=== PATIENT | female | born 1965 | race Hispanic/Latino ===

== ENCOUNTER 2016-08-10 22:11 | Inpatient (IN) | payer MEDICARE, OTHER ==
[~2016-08-10] VITALS: Ht 157.5 cm; Wt 98.0 kg
[~2016-08-10 22:11] MED LIST: ALENDRONATE70 MG PO; AMLODIPINE BESYL5 MG PO; AMLODIPINE5 MG PO; AMOXICILLIN500 MG PO; ARAVA20 MG PO; AUGMENTIN875TAB PO; BACTRIM DS1 TAB PO; BUMETANIDE1 MG PO; CALCIUM600 M1 PO; CEFEPIME1 GM IM; CELEBREX100 M1 PO; COMPAZINE10 MG OR; DULCOLAX10 MG; DULCOLAX5 MG PO; DURAGESIC50 MCG/H1 TD; DYNACIN100 MG PO; EFFEXOR XR150 MG PO; EFFEXOR XR75 MG PO; EFFEXOR75 MG PO; ENBREL25 MG/0.5 SC; FIORINA1 PO; FLEXERIL PO; FOSAMAX70 MG PO; FUROSEMIDE20 MG PO; GABAPENTIN300 M2; GABAPENTIN300 M2 PO; HEPARIN LOC IV; HYDROCO/APAP1 TA9 PO; HYDROXYZ HCL25 MG PO; IPRATROPIU0.5 MG/3 M IN; K-DUR/KLOR-CON20 MEQ PO; LASIX 20 MG TAB20 MG PO; LASIX 40 MG40 MG/TAB PO; LISINOPRIL10 MG PO; LISINOPRIL20 MG PO; LOPRESSOR 550 MG/TAB PO; LOPRESSOR25 MG PO; LORTAB 10-325 M1 TAB PO; LORTAB 1010 MG PO; LORTAB 5/3255 MG PO; MAGNESIUM-OX400 MG PO; METOPROL TAR100 MG PO; METOPROL TAR25 MG PO; METOPROL TAR50 MG PO; MORPHINE SUL30 M3 PO; MORPHINE SUL30 M5 PO; MUCINEX600 MG PO; MULTIVITAMI9 PO; NAPROSYN500 MG PO; NEURONTIN300 MG PO; NEURONTIN600 MG PO; NORCO1 TAB PO; NORVASC10 MG PO; NYSTATIN TOP; NYSTATIN100000 M1 PO; ONDANSETRON4 MG PO; PERCOCET 10/31 COMBO PO; PREDNISODT10 PO; PREDNISONE10 MG PO; PREDNISONE20 MG PO; PREDNISONE5 MG PO; RESTORIL15 M1 PO; RESTORIL15 MG PO; STOOL SOFTENER1 TAB PO; TOPROL XL100 MG PO; ULTRAM50 M1 PO; VANCOMYCIN HCL1 GM IV; VANCOMYCIN HCL1.5GM IV; VITAMIN D PO; VITAMIN D50000 UN1 PO; WELLBUTRIN150 M2 PO; XANAX0.25 MG PO; XANAX1 MG PO; ZOFRAN ODT4 MG PO; ZYRTEC-D ALG PO
[2016-08-10 23:40] LABS: HEMATOCRIT 40.2 % (37.0-47.0); HEMOGLOBIN 12.5 g/dl (12.0-16.0); IMMATURE GRANULOCYTES 1.8 % (0.0-1.0); MEAN CELL VOLUME 98.5 fL CALC (80.0-100.0); MEAN CORPUSCULAR HGB 30.6 pG CALC (26.0-32.0); MEAN CORPUSCULAR HGB CONC 31.1 g/L CALC (32.0-36.0); NEUT# 17.17 thou/uL (2.00-7.15); RED BLOOD COUNT 4.08 mill/uL (4.20-5.60); RED CELL DISTRI WIDTH 16.6 % (11.5-15.5)
[2016-08-10 23:54] LABS: ALBUMIN 3.5 g/dL (3.2-5.0); CALCIUM 7.7 mg/dL (8.4-10.2); CREATININE 2.4 mg/dL (0.5-1.0); POTASSIUM 4.2 mmol/l (3.5-5.1); TOTAL PROTEIN 7.2 g/dL (6.3-8.2)
[2016-08-11] VITALS (17 sets, daily range): BP systolic 86–171; BP diastolic 48–85
[2016-08-11 02:30] LABS: ACT PARTIAL THROMBO TIME 31.6 SECONDS (20.0-32.5); INTERNATIONAL NORMALIZED RATIO 1.1 RATIO (0.7-1.3); PROTHROMBIN TIME 11.5 SECONDS (9.0-12.5)
[2016-08-11 04:44] LABS: URINE BILIRUBIN - DIPSTICK NEGATIVE (NEGATIVE); URINE BLOOD DIPSTICK LARGE (NEGATIVE); URINE COLOR YELLOW; URINE GLUCOSE - DIPSTICK NEGATIVE (NEGATIVE); URINE KETONE TRACE mg/dL (NEGATIVE); URINE PROTEIN - DIPSTICK 100 mg/dL (NEG-TRACE); URINE UROBILINOGEN - DIPSTICK 0.2 E.U./dL (0.2)
[2016-08-11 04:52] LABS: URINE CLARITY CLOUDY; URINE LEUK ESTERASE SMALL (NEGATIVE); URINE NITRITE - DIPSTICK POSITIVE (Negative)
[2016-08-11 04:59] LABS: URINE BACTERIA FEW hpf; URINE WBC 50-100 WBC/hpf (0-5)
[2016-08-11 09:41] LABS: HEMATOCRIT 34.6 % (37.0-47.0); HEMOGLOBIN 10.1 g/dl (12.0-16.0); IMMATURE GRANULOCYTES 1.1 % (0.0-1.0); MEAN CELL VOLUME 104.5 fL CALC (80.0-100.0); MEAN CORPUSCULAR HGB 30.5 pG CALC (26.0-32.0); MEAN CORPUSCULAR HGB CONC 29.2 g/L CALC (32.0-36.0); NEUT# 10.02 thou/uL (2.00-7.15); RED BLOOD COUNT 3.31 mill/uL (4.20-5.60); RED CELL DISTRI WIDTH 16.9 % (11.5-15.5)
[2016-08-11 09:55] LABS: CALCIUM 6.2 mg/dL (8.4-10.2); CREATININE 2.1 mg/dL (0.5-1.0); POTASSIUM 4.8 mmol/l (3.5-5.1)
[2016-08-11] MEDS ORDERED: AMOXICILLIN500 M2 PO (11:47)
[2016-08-11] MEDS ORDERED: OXYCODONE HCL10 MG PO (11:49)
[2016-08-11] MEDS ORDERED: DULOXETINE HCL30 MG PO (15:17)
[2016-08-12] VITALS (12 sets, daily range): BP systolic 130–176; BP diastolic 77–118
[2016-08-12 06:20] LABS: HEMATOCRIT 32.3 % (37.0-47.0); HEMOGLOBIN 9.7 g/dl (12.0-16.0); IMMATURE GRANULOCYTES 1.4 % (0.0-1.0); MEAN CELL VOLUME 100.6 fL CALC (80.0-100.0); MEAN CORPUSCULAR HGB 30.2 pG CALC (26.0-32.0); NEUT# 10.79 thou/uL (2.00-7.15); RED BLOOD COUNT 3.21 mill/uL (4.20-5.60); RED CELL DISTRI WIDTH 16.7 % (11.5-15.5)
[2016-08-12 06:31] LABS: CALCIUM 6.1 mg/dL (8.4-10.2); CREATININE 1.8 mg/dL (0.5-1.0); POTASSIUM 4.9 mmol/l (3.5-5.1)
[2016-08-13] VITALS (7 sets, daily range): BP systolic 142–160; BP diastolic 68–102
[2016-08-13 06:28] LABS: HEMATOCRIT 34.4 % (37.0-47.0); HEMOGLOBIN 10.6 g/dl (12.0-16.0); IMMATURE GRANULOCYTES 1.3 % (0.0-1.0); MEAN CELL VOLUME 98.6 fL CALC (80.0-100.0); MEAN CORPUSCULAR HGB 30.4 pG CALC (26.0-32.0); MEAN CORPUSCULAR HGB CONC 30.8 g/L CALC (32.0-36.0); NEUT# 7.96 thou/uL (2.00-7.15); RED BLOOD COUNT 3.49 mill/uL (4.20-5.60); RED CELL DISTRI WIDTH 16.8 % (11.5-15.5)
[2016-08-13 06:41] LABS: CALCIUM 6.4 mg/dL (8.4-10.2); CREATININE 1.8 mg/dL (0.5-1.0); POTASSIUM 4.6 mmol/l (3.5-5.1)
[2016-08-14 03:35] VITALS: BP 140/90
[2016-08-14 08:48] VITALS: BP 130/70
[2016-08-14] MEDS ORDERED: TOPROL XL100 MG PO (12:18)
[2016-08-14] MEDS ORDERED: GABAPENTIN300 M2 PO (12:19)
[2016-08-14] MEDS ORDERED: BUSPAR5 M1 PO (12:19)
[2016-08-14] MEDS ORDERED: DULOXETINE HCL30 MG PO (12:19)
[2016-08-14] MEDS ORDERED: CIPROFLOXACN500 MG PO (12:22)
[2016-08-14] MEDS ORDERED: PREDNISONE10 MG PO (12:23)
[2016-08-14] MEDS ORDERED: IPRATROPIU0.5 MG/3 M IN (12:24)
[2016-08-14] MEDS ORDERED: VITAMIN D50000 UNIT PO (12:25)
== END 2016-08-14 14:06 | disposition home health service (06) | DRG 871 ==
LOC: ENPENDDIS → ED 22:11 → ED-I 08-11 04:00 → ED 08-11 05:57 → MS2 08-11 05:58 → ICU 08-11 05:58 → MS2 08-12 20:35
PROVIDERS: Emergency Medicine; Internal Medicine; ADMIT Internal Medicine; ATTEND Internal Medicine
PROC: 0T9B70Z Drainage of Bladder with Drainage Device, Via Natural or Artificial Opening (ICD-10-PCS; principal; 2016-08-11)
DX: A41.51 Sepsis due to Escherichia coli [E. coli] (principal); R65.21 Severe sepsis with septic shock; G93.41 Metabolic encephalopathy; E87.2 Acidosis; N30.01 Acute cystitis with hematuria; N17.9 Acute kidney failure, unspecified; M06.9 Rheumatoid arthritis, unspecified; F32.9 Major depressive disorder, single episode, unspecified; M19.90 Unspecified osteoarthritis, unspecified site; F17.210 Nicotine dependence, cigarettes, uncomplicated; M79.7 Fibromyalgia; G62.9 Polyneuropathy, unspecified; I12.9 Hypertensive chronic kidney disease with stage 1 through stage 4 chronic kidney disease, or unspecified chronic kidney disease; N18.9 Chronic kidney disease, unspecified; F41.1 Generalized anxiety disorder; E55.9 Vitamin D deficiency, unspecified; Z87.440 Personal history of urinary (tract) infections; Z86.14 Personal history of Methicillin resistant Staphylococcus aureus infection; Z79.52 Long term (current) use of systemic steroids
CPT/HCPCS: J3370

== ENCOUNTER 2016-10-09 03:37 | Emergency (ER) | payer MEDICARE, OTHER ==
[~2016-10-09] VITALS: Ht 157.5 cm; Wt 96.0 kg
[~2016-10-09 03:37] MED LIST changes: +AMOXICILLIN500 M2 PO; +BUSPAR5 M1 PO; +CIPROFLOXACN500 MG PO; +DULOXETINE HCL30 MG PO; +OXYCODONE HCL10 MG PO; +VITAMIN D50000 UNIT PO
[2016-10-09] MEDS ORDERED: GABAPENTIN600 MG PO (03:51)
[2016-10-09] MEDS ORDERED: PAXIL40 MG PO (03:56)
[2016-10-09] MEDS ORDERED: DILAUDID4 MG PO (03:56)
[2016-10-09] MEDS ORDERED: FUROSEMIDE40 MG PO (03:57)
[2016-10-09 05:01] LABS: ALBUMIN 3.8 g/dL (3.2-5.0); BILIRUBIN, TOTAL 0.6 mg/dL (0.0-1.4); CALCIUM 8.3 mg/dL (8.4-10.2); CREATININE 1.6 mg/dL (0.5-1.0); POTASSIUM 3.6 mmol/l (3.5-5.1); TOTAL PROTEIN 6.7 g/dL (6.3-8.2)
[2016-10-09 05:09] LABS: HEMATOCRIT 40.1 % (37.0-47.0); HEMOGLOBIN 12.7 g/dl (12.0-16.0); IMMATURE GRANULOCYTES 4.5 % (0.0-1.0); MEAN CORPUSCULAR HGB 31.1 pG CALC (26.0-32.0); MEAN CORPUSCULAR HGB CONC 31.7 g/L CALC (32.0-36.0); NEUT# 7.73 thou/uL (2.00-7.15); RED BLOOD COUNT 4.09 mill/uL (4.20-5.60); RED CELL DISTRI WIDTH 16.7 % (11.5-15.5)
[2016-10-09] MEDS ORDERED: CEPHALEXIN500 MG PO (05:34)
[2016-10-09] MEDS ORDERED: BACTRIM DS1 TAB PO (05:34)
[2016-10-09 06:29] VITALS: BP 160/75
== END 2016-10-09 06:29 | disposition home or self-care (01) ==
LOC: ED 03:37
PROVIDERS: Emergency Medicine
DX: L03.116 Cellulitis of left lower limb (principal); G62.9 Polyneuropathy, unspecified; I10 Essential (primary) hypertension; M06.9 Rheumatoid arthritis, unspecified; M19.90 Unspecified osteoarthritis, unspecified site; F41.9 Anxiety disorder, unspecified; F32.9 Major depressive disorder, single episode, unspecified; M81.0 Age-related osteoporosis without current pathological fracture

== ENCOUNTER 2017-03-17 06:21 | Emergency (ER) | payer MEDICARE, OTHER ==
[~2017-03-17] VITALS: Ht 157.5 cm; Wt 109.0 kg
[~2017-03-17 06:21] MED LIST changes: +CEPHALEXIN500 MG PO; +DILAUDID4 MG PO; +FUROSEMIDE40 MG PO; +GABAPENTIN600 MG PO; +PAXIL40 MG PO
[2017-03-17 08:10] VITALS: BP 129/80
== END 2017-03-17 08:52 | disposition home or self-care (01) ==
LOC: ED 06:21
DX: G89.29 Other chronic pain (principal); M54.5 Low back pain; M06.9 Rheumatoid arthritis, unspecified; M79.7 Fibromyalgia

== ENCOUNTER 2017-03-20 19:57 | Emergency (ER) | payer MEDICARE, OTHER ==
[~2017-03-20] VITALS: Ht 157.5 cm; Wt 100.0 kg
[2017-03-21 00:40] VITALS: BP 161/73
[2017-03-21] MEDS ORDERED: ESCITALOPRAM OX10 MG PO (15:39)
[2017-03-21] MEDS ORDERED: PEPCID20 MG PO (15:41)
[2017-03-21] MEDS ORDERED: NYSTAT-RX500 MU XX (15:42)
[2017-03-21] MEDS ORDERED: TYLENOL325 MG PO (15:43)
[2017-03-21] MEDS ORDERED: STOOL SOFTENER PO (15:43)
== END 2017-03-21 00:40 | disposition home or self-care (01) ==
LOC: ED 19:57
DX: T40.601A Poisoning by unspecified narcotics, accidental (unintentional), initial encounter (principal); I10 Essential (primary) hypertension; M06.9 Rheumatoid arthritis, unspecified; M19.90 Unspecified osteoarthritis, unspecified site; M79.7 Fibromyalgia; F32.9 Major depressive disorder, single episode, unspecified; M81.0 Age-related osteoporosis without current pathological fracture; G62.9 Polyneuropathy, unspecified; Y92.009 Unspecified place in unspecified non-institutional (private) residence as the place of occurrence of the external cause

== ENCOUNTER 2017-03-21 01:39 | Inpatient (IN) | payer MEDICARE, OTHER ==
[~2017-03-21] VITALS: Ht 274.3 cm; Wt 106.2 kg
[2017-03-21 04:05] LABS: ALBUMIN 3.6 g/dL (3.2-5.0); BILIRUBIN, TOTAL 0.4 mg/dL (0.0-1.4); TOTAL PROTEIN 6.4 g/dL (6.3-8.2)
[2017-03-21 04:07] LABS: HEMATOCRIT 42.9 % (37.0-47.0); IMMATURE GRANULOCYTES 3.4 % (0.0-1.0); MEAN CELL VOLUME 96.8 fL CALC (80.0-100.0); MEAN CORPUSCULAR HGB 29.3 pG CALC (26.0-32.0); MEAN CORPUSCULAR HGB CONC 30.3 g/L CALC (32.0-36.0); NEUT# 13.87 thou/uL (2.00-7.15); RED BLOOD COUNT 4.43 mill/uL (4.20-5.60); RED CELL DISTRI WIDTH 15.4 % (11.5-15.5)
[2017-03-21 04:15] LABS: CREATININE 4.8 mg/dL (0.5-1.0); POTASSIUM 5.7 mmol/l (3.5-5.1)
[2017-03-21 04:30] LABS: ACT PARTIAL THROMBO TIME 23.6 SECONDS (20.0-32.5); INTERNATIONAL NORMALIZED RATIO 0.9 RATIO (0.7-1.3); PROTHROMBIN TIME 10.4 SECONDS (9.0-12.5)
[2017-03-21 06:02] LABS: URINE BILIRUBIN - DIPSTICK NEGATIVE (NEGATIVE); URINE BLOOD DIPSTICK MODERATE (NEGATIVE); URINE COLOR YELLOW; URINE GLUCOSE - DIPSTICK NEGATIVE (NEGATIVE); URINE KETONE 15 mg/dL (NEGATIVE); URINE LEUK ESTERASE NEGATIVE (NEGATIVE); URINE PH 5.5 (4.5-8.0); URINE PROTEIN - DIPSTICK 100 mg/dL (NEG-TRACE); URINE UROBILINOGEN - DIPSTICK 0.2 E.U./dL (0.2)
[2017-03-21 06:11] LABS: URINE CLARITY CLEAR; URINE NITRITE - DIPSTICK POSITIVE (Negative)
[2017-03-21 06:16] LABS: URINE BACTERIA MANY hpf
[2017-03-21 08:20] VITALS: BP 128/81
[2017-03-21 09:30] LABS: HEMATOCRIT 39.5 % (37.0-47.0); HEMOGLOBIN 12.5 g/dl (12.0-16.0); IMMATURE GRANULOCYTES 3.6 % (0.0-1.0); MEAN CELL VOLUME 94.5 fL CALC (80.0-100.0); MEAN CORPUSCULAR HGB 29.9 pG CALC (26.0-32.0); MEAN CORPUSCULAR HGB CONC 31.6 g/L CALC (32.0-36.0); NEUT# 11.54 thou/uL (2.00-7.15); RED BLOOD COUNT 4.18 mill/uL (4.20-5.60); RED CELL DISTRI WIDTH 15.4 % (11.5-15.5)
[2017-03-21 09:59] LABS: POTASSIUM 4.7 mmol/l (3.5-5.1)
[2017-03-21 10:40] LABS: CHOLESTEROL HDL RATIO 3.7 (<4.4 (CALC)); MAGNESIUM 2.4 mg/dL (1.6-2.3)
[2017-03-21 11:01] LABS: CREATININE 5.4 mg/dL (0.5-1.0)
[2017-03-21 11:17] VITALS: BP 163/90
[2017-03-21 15:36] VITALS: BP 137/85
[2017-03-21] MEDS ORDERED: ESCITALOPRAM OX10 MG PO (15:39)
[2017-03-21] MEDS ORDERED: PEPCID20 MG PO (15:41)
[2017-03-21] MEDS ORDERED: NYSTAT-RX500 MU XX (15:42)
[2017-03-21] MEDS ORDERED: STOOL SOFTENER PO (15:43)
[2017-03-21] MEDS ORDERED: TYLENOL325 MG PO (15:43)
[2017-03-21 19:41] VITALS: BP 123/70
[2017-03-22 05:46] LABS: HEMATOCRIT 36.4 % (37.0-47.0); HEMOGLOBIN 11.1 g/dl (12.0-16.0); IMMATURE GRANULOCYTES 3.7 % (0.0-1.0); MEAN CELL VOLUME 98.1 fL CALC (80.0-100.0); MEAN CORPUSCULAR HGB 29.9 pG CALC (26.0-32.0); MEAN CORPUSCULAR HGB CONC 30.5 g/L CALC (32.0-36.0); NEUT# 9.3 thou/uL (2.00-7.15); RED BLOOD COUNT 3.71 mill/uL (4.20-5.60); RED CELL DISTRI WIDTH 15.4 % (11.5-15.5)
[2017-03-22 05:52] VITALS: BP 138/76
[2017-03-22 06:00] LABS: ALBUMIN 2.9 g/dL (3.2-5.0); CREATININE 4.8 mg/dL (0.5-1.0); POTASSIUM 4.6 mmol/l (3.5-5.1)
[2017-03-22 09:20] VITALS: BP 140/50
[2017-03-22 15:23] VITALS: BP 110/77
[2017-03-22 19:20] VITALS: BP 128/81
[2017-03-23 04:13] VITALS: BP 136/87
[2017-03-23 04:52] LABS: HEMATOCRIT 34.1 % (37.0-47.0); HEMOGLOBIN 10.3 g/dl (12.0-16.0); IMMATURE GRANULOCYTES 4.1 % (0.0-1.0); MEAN CELL VOLUME 98.8 fL CALC (80.0-100.0); MEAN CORPUSCULAR HGB 29.9 pG CALC (26.0-32.0); MEAN CORPUSCULAR HGB CONC 30.2 g/L CALC (32.0-36.0); NEUT# 6.33 thou/uL (2.00-7.15); RED BLOOD COUNT 3.45 mill/uL (4.20-5.60); RED CELL DISTRI WIDTH 15.6 % (11.5-15.5)
[2017-03-23 04:56] LABS: ALBUMIN 2.6 g/dL (3.2-5.0); CREATININE 4.4 mg/dL (0.5-1.0); POTASSIUM 3.7 mmol/l (3.5-5.1)
[2017-03-23 07:50] VITALS: BP 132/58
[2017-03-23 15:50] VITALS: BP 147/78
[2017-03-23 19:25] VITALS: BP 136/72
[2017-03-24 04:00] VITALS: BP 107/57
[2017-03-24 06:07] LABS: HEMATOCRIT 34.8 % (37.0-47.0); HEMOGLOBIN 10.5 g/dl (12.0-16.0); IMMATURE GRANULOCYTES 4.4 % (0.0-1.0); MEAN CORPUSCULAR HGB 29.6 pG CALC (26.0-32.0); MEAN CORPUSCULAR HGB CONC 30.2 g/L CALC (32.0-36.0); NEUT# 5.77 thou/uL (2.00-7.15); RED BLOOD COUNT 3.55 mill/uL (4.20-5.60); RED CELL DISTRI WIDTH 15.5 % (11.5-15.5)
[2017-03-24 06:16] LABS: CREATININE 4.1 mg/dL (0.5-1.0); MAGNESIUM 1.6 mg/dL (1.6-2.3); POTASSIUM 3.7 mmol/l (3.5-5.1)
[2017-03-24 09:59] VITALS: BP 121/84
[2017-03-24 15:06] VITALS: BP 90/42
[2017-03-24 19:00] VITALS: BP 95/60
[2017-03-25 08:21] VITALS: BP 104/77
[2017-03-25 14:09] LABS: ALBUMIN 2.6 g/dL (3.2-5.0); POTASSIUM 3.8 mmol/l (3.5-5.1)
[2017-03-25 16:00] VITALS: BP 93/61
[2017-03-25 19:15] VITALS: BP 106/82
[2017-03-26 03:40] VITALS: BP 142/77
[2017-03-26 07:52] VITALS: BP 117/63
[2017-03-26 15:13] VITALS: BP 156/98
[2017-03-26 19:01] VITALS: BP 153/90
[2017-03-26 20:26] LABS: HEMATOCRIT 33.5 % (37.0-47.0); HEMOGLOBIN 10.7 g/dl (12.0-16.0); MEAN CELL VOLUME 92.3 fL CALC (80.0-100.0); MEAN CORPUSCULAR HGB 29.5 pG CALC (26.0-32.0); MEAN CORPUSCULAR HGB CONC 31.9 g/L CALC (32.0-36.0); PLATELET COUNT 221 thou/uL (130-400); RED BLOOD COUNT 3.63 mill/uL (4.20-5.60); RED CELL DISTRI WIDTH 15.1 % (11.5-15.5)
[2017-03-26 20:56] LABS: IMMATURE GRANULOCYTES 8.2 % (0.0-1.0); MANUAL DIFFERENTIAL YES
[2017-03-26 20:58] LABS: BAND 7 % (0-8)
[2017-03-26 21:00] LABS: CREATININE 4.4 mg/dL (0.5-1.0); POTASSIUM 2.7 mmol/l (3.5-5.1)
[2017-03-27 04:26] VITALS: BP 167/85
[2017-03-27 05:59] LABS: HEMATOCRIT 34.1 % (37.0-47.0); MEAN CELL VOLUME 91.9 fL CALC (80.0-100.0); MEAN CORPUSCULAR HGB 29.6 pG CALC (26.0-32.0); MEAN CORPUSCULAR HGB CONC 32.3 g/L CALC (32.0-36.0); RED BLOOD COUNT 3.71 mill/uL (4.20-5.60); RED CELL DISTRI WIDTH 15.1 % (11.5-15.5)
[2017-03-27 06:07] LABS: ALBUMIN 2.8 g/dL (3.2-5.0); CREATININE 4.4 mg/dL (0.5-1.0); POTASSIUM 2.7 mmol/l (3.5-5.1)
[2017-03-27 06:18] LABS: IMMATURE GRANULOCYTES 6.9 % (0.0-1.0); MANUAL DIFFERENTIAL YES
[2017-03-27 06:19] LABS: BAND 4 % (0-8)
[2017-03-27 06:25] LABS: PLATELET COUNT 258 thou/uL (130-400)
[2017-03-27 08:45] VITALS: BP 170/90
[2017-03-27 08:56] LABS: URINE BILIRUBIN - DIPSTICK NEGATIVE (NEGATIVE); URINE BLOOD DIPSTICK MODERATE (NEGATIVE); URINE COLOR YELLOW; URINE GLUCOSE - DIPSTICK 250 mg/dL (NEGATIVE); URINE KETONE NEGATIVE (NEGATIVE); URINE LEUK ESTERASE NEGATIVE (Negative); URINE NITRITE - DIPSTICK NEGATIVE (Negative); URINE PROTEIN - DIPSTICK 30 mg/dL (NEG-TRACE); URINE UROBILINOGEN - DIPSTICK 0.2 E.U./dL (0.2)
[2017-03-27 09:04] LABS: URINE CLARITY CLEAR
[2017-03-27 09:06] LABS: URINE SQUAMOUS EPITHELIAL CELL FEW EPI/hpf (0-FEW)
[2017-03-27 15:05] VITALS: BP 165/99
[2017-03-27 19:00] VITALS: BP 190/113
[2017-03-28] VITALS (7 sets, daily range): BP systolic 150–182; BP diastolic 88–106
[2017-03-28 06:07] LABS: HEMATOCRIT 32.5 % (37.0-47.0); HEMOGLOBIN 10.3 g/dl (12.0-16.0); MEAN CELL VOLUME 92.6 fL CALC (80.0-100.0); MEAN CORPUSCULAR HGB 29.3 pG CALC (26.0-32.0); MEAN CORPUSCULAR HGB CONC 31.7 g/L CALC (32.0-36.0); RED BLOOD COUNT 3.51 mill/uL (4.20-5.60); RED CELL DISTRI WIDTH 15.3 % (11.5-15.5)
[2017-03-28 06:23] LABS: CREATININE 4.4 mg/dL (0.5-1.0); MAGNESIUM 2.3 mg/dL (1.6-2.3); POTASSIUM 3.3 mmol/l (3.5-5.1)
[2017-03-29] VITALS (7 sets, daily range): BP systolic 130–189; BP diastolic 60–111
[2017-03-29 06:26] LABS: HEMATOCRIT 31.3 % (37.0-47.0); HEMOGLOBIN 9.9 g/dl (12.0-16.0); MEAN CELL VOLUME 93.4 fL CALC (80.0-100.0); MEAN CORPUSCULAR HGB 29.6 pG CALC (26.0-32.0); MEAN CORPUSCULAR HGB CONC 31.6 g/L CALC (32.0-36.0); RED BLOOD COUNT 3.35 mill/uL (4.20-5.60); RED CELL DISTRI WIDTH 15.5 % (11.5-15.5)
[2017-03-29 06:41] LABS: ALBUMIN 2.8 g/dL (3.2-5.0); MAGNESIUM 2.2 mg/dL (1.6-2.3); POTASSIUM 3.5 mmol/l (3.5-5.1)
[2017-03-30 05:53] VITALS: BP 136/76
[2017-03-30 08:05] LABS: ALBUMIN 3.1 g/dL (3.2-5.0); CREATININE 3.5 mg/dL (0.5-1.0); POTASSIUM 3.7 mmol/l (3.5-5.1)
[2017-03-30 08:27] VITALS: BP 111/75
[2017-03-30 15:27] VITALS: BP 111/72
[2017-03-30 20:25] VITALS: BP 152/93
[2017-03-31 07:43] LABS: HEMATOCRIT 33.5 % (37.0-47.0); HEMOGLOBIN 10.3 g/dl (12.0-16.0); MEAN CELL VOLUME 96.3 fL CALC (80.0-100.0); MEAN CORPUSCULAR HGB 29.6 pG CALC (26.0-32.0); MEAN CORPUSCULAR HGB CONC 30.7 g/L CALC (32.0-36.0); RED BLOOD COUNT 3.48 mill/uL (4.20-5.60); RED CELL DISTRI WIDTH 15.9 % (11.5-15.5)
[2017-03-31 08:13] LABS: ALBUMIN 2.9 g/dL (3.2-5.0); CREATININE 3.1 mg/dL (0.5-1.0); POTASSIUM 3.6 mmol/l (3.5-5.1)
[2017-03-31 08:15] VITALS: BP 130/50
[2017-03-31 16:41] VITALS: BP 120/76
[2017-03-31 20:10] VITALS: BP 120/63
[2017-04-01 06:43] VITALS: BP 134/96
[2017-04-01 07:55] VITALS: BP 112/78
[2017-04-01] MEDS ORDERED: OMNICEF300 MG PO (13:51)
[2017-04-01] MEDS ORDERED: PREDNISONE10 MG PO (13:51)
[2017-04-01] MEDS ORDERED: VITAMIN D2000 UNI2 PO (13:51)
[2017-04-01] MEDS ORDERED: GABAPENTIN300 M2 PO (13:51)
[2017-04-01 16:01] VITALS: BP 117/75
[2017-04-01 20:20] VITALS: BP 122/84
[2017-04-02 05:30] VITALS: BP 137/84
[2017-04-02 05:41] LABS: ALBUMIN 3.1 g/dL (3.2-5.0); CREATININE 2.4 mg/dL (0.5-1.0); POTASSIUM 4.2 mmol/l (3.5-5.1)
[2017-04-02 05:48] LABS: HEMATOCRIT 35.4 % (37.0-47.0); HEMOGLOBIN 10.8 g/dl (12.0-16.0); MEAN CELL VOLUME 94.9 fL CALC (80.0-100.0); MEAN CORPUSCULAR HGB CONC 30.5 g/L CALC (32.0-36.0); PLATELET COUNT 380 thou/uL (130-400); RED BLOOD COUNT 3.73 mill/uL (4.20-5.60); RED CELL DISTRI WIDTH 15.9 % (11.5-15.5)
[2017-04-02 06:23] LABS: IMMATURE GRANULOCYTES 13.6 % (0.0-1.0)
[2017-04-02 06:24] LABS: BAND 5 % (0-8); MANUAL DIFFERENTIAL YES
[2017-04-02 06:25] LABS: PLATELET ESTIMATE NORMAL
[2017-04-02 08:00] VITALS: BP 115/82
[2017-04-02 15:01] VITALS: BP 114/70
[2017-04-03 04:22] VITALS: BP 153/97
[2017-04-03 07:30] VITALS: BP 144/95
[2017-04-03 15:20] VITALS: BP 116/68
[2017-04-03 19:50] VITALS: BP 140/90
[2017-04-04 05:42] VITALS: BP 131/80
[2017-04-04 08:00] VITALS: BP 151/89
[2017-04-04 08:12] VITALS: BP 151/89
== END 2017-04-04 13:07 | disposition home health service (06) | DRG 871 ==
LOC: ED 01:39 → ED-I 06:30 → ED 06:58 → MS2 06:59
PROVIDERS: Emergency Medicine; Internal Medicine; Internal Medicine Nephrology; Nurse Practitioner Family; ADMIT Internal Medicine; ATTEND Internal Medicine
PROC: 0T9B70Z Drainage of Bladder with Drainage Device, Via Natural or Artificial Opening (ICD-10-PCS; principal; 2017-03-21)
DX: A41.9 Sepsis, unspecified organism (principal); N17.0 Acute kidney failure with tubular necrosis; G92 Toxic encephalopathy; E87.2 Acidosis; D68.59 Other primary thrombophilia; I95.9 Hypotension, unspecified; N18.3 Chronic kidney disease, stage 3 (moderate); G62.9 Polyneuropathy, unspecified; N39.0 Urinary tract infection, site not specified; I47.1 Supraventricular tachycardia; N25.81 Secondary hyperparathyroidism of renal origin; T40.2X1A Poisoning by other opioids, accidental (unintentional), initial encounter; R65.20 Severe sepsis without septic shock; G89.4 Chronic pain syndrome; I12.9 Hypertensive chronic kidney disease with stage 1 through stage 4 chronic kidney disease, or unspecified chronic kidney disease; M06.9 Rheumatoid arthritis, unspecified; M19.90 Unspecified osteoarthritis, unspecified site; M81.0 Age-related osteoporosis without current pathological fracture; E86.0 Dehydration; F32.9 Major depressive disorder, single episode, unspecified; F41.1 Generalized anxiety disorder; F17.210 Nicotine dependence, cigarettes, uncomplicated; M79.7 Fibromyalgia; L30.4 Erythema intertrigo; B36.8 Other specified superficial mycoses; B96.20 Unspecified Escherichia coli [E. coli] as the cause of diseases classified elsewhere; Y92.009 Unspecified place in unspecified non-institutional (private) residence as the place of occurrence of the external cause; Z87.440 Personal history of urinary (tract) infections; Z66 Do not resuscitate; Z87.01 Personal history of pneumonia (recurrent); D64.9 Anemia, unspecified; Z91.19 Patient's noncompliance with other medical treatment and regimen; Z22.322 Carrier or suspected carrier of Methicillin resistant Staphylococcus aureus
CPT/HCPCS: J1335; J1650; J3370